=== PATIENT | male | born 1940 | race Caucasian/White ===

== ENCOUNTER 2021-01-18 16:12 | Inpatient (IN) | payer MEDICARE, OTHER ==
[~2021-01-18] VITALS: Ht 177.8 cm; Wt 81.2 kg
[~2021-01-18 16:12] MED LIST: AMIODARONE HCL200 MG PO; AMLODIPINE BESY10 MG PO; ATORVASTATIN CA10 MG PO; DOK100 MG PO; FERROUS SULFAT325 MG PO; HUMALOG100 UNIT/3; HYDRALAZINE HCL10 MG PO; HYDROCODON-ACE1 EA11 PO; LANTUS100 UNITS/ SQ; MULTIPLE VITAM1 EAC1 PO; NORCO 5-325 TA1 EACH PO; OMEGA 3 1,0001 EACH PEG; SENNA LAX8.6 MG PO; VITAMIN D1000 UNI1 PO; ZINC SULFATE220 M1 PO; ZOLOFT100 MG PO; vascepa PO
[2021-01-18] MEDS ORDERED: SODIUM CHLORIDE 0.9% 250ML 250 ML IV ONE (16:45)
[2021-01-18 16:53] LABS: BASOPHILS # (AUTO) 0.1 (0.0-0.1); BASOPHILS % 0.3 % (0.0-1.0); EOSINOPHILS % 0.2 % (0.0-6.0); HEMATOCRIT 30.7 % (38.2-49.6); HEMOGLOBIN 8.8 g/dL (14.0-18.0); LYMPHOCYTES # (AUTO) 0.9 (1.0-3.2); LYMPHOCYTES % 4.7 % (18.0-39.1); MEAN CORPUSCULAR HEMOGLOBIN 28.5 pg (28-32); MEAN CORPUSCULAR HGB CONC 28.7 g/dL (31-35); MEAN CORPUSCULAR VOLUME 99.4 fL (81-99); MONOCYTES # (AUTO) 0.8 (0.2-0.8); PLATELET COUNT 366 x10e3/uL (140-360); RED BLOOD COUNT 3.09 x10e6/uL (4.3-5.7)
[2021-01-18 17:01] LABS: CLARITY,URINE TURBID (CLEAR); COLOR,URINE YELLOW (YELLOW); KETONES,URINE NEGATIVE (NEGATIVE); LEUKOCYTE ESTERASE ,URINE LARGE (NEGATIVE); NITRITE,URINE NEGATIVE (NEGATIVE); PROTEIN,URINE DIPSTICK 2+ (NEGATIVE); URINE UROBILINOGEN 0.2 mg/dL (0.2 - 1)
[2021-01-18 17:10] LABS: BACTERIA,URINE MODERATE /HPF; MUCUS,URINE RARE (RARE); WBC,URINE (MAN) >50 /HPF (0-5)
[2021-01-18 17:12] LABS: ALBUMIN 2.2 g/dL (3.5-5.0); ALBUMIN/GLOBULIN RATIO 0.4 (0.8-2.0); ANION GAP 25.5 mmol/L (8-16); CALCIUM 7.3 mg/dL (8.4-10.2); CREATININE, SERUM 7.28 mg/dL (0.72-1.25); MAGNESIUM 2.1 MG/DL (1.3-2.1)
[2021-01-18 17:14] LABS: POTASSIUM 5.5 mmol/L (3.5-5.1)
[2021-01-18 17:18] LABS: CREATINE KINASE MB 1.8 ng/mL (0-5.0)
[2021-01-18] MEDS ORDERED: CEFEPIME 1 GM in SODIUM CHLORIDE 0.9% 50ML 50 ML IV ONE (17:30)
[2021-01-18] MEDS ORDERED: DEXTROSE 50% SYRINGE 50 ML IV STA (17:53)
[2021-01-18] MEDS ORDERED: FUROSEMIDE INJ 10 MG/ML 4 ML VIAL IV ONE (18:00)
[2021-01-18] MEDS ORDERED: SOD POLYSTYRENE SULFONATE SUSP 15 GM/60 ML BTL PO ONE (18:00)
[2021-01-18] MEDS ORDERED: INSULIN REGULAR, HUMAN 100 UNIT/1 ML IV ONE (18:15)
[2021-01-18] MEDS ORDERED: SODIUM CHLORIDE 0.9% 1000ML 1,000 ML ONE (18:24)
[2021-01-18] MEDS: SODIUM CHLORIDE 0.9% 1000ML 1,000 ML IV SCH (18:30)
[2021-01-18] MEDS ORDERED: ASPIRIN 81 MG CHEW TAB PO ONE ×2 (18:30→18:45)
[2021-01-18] MEDS ORDERED: SODIUM BICARBONATE 8.4% INJ 50 ML SYR IV STA ×4 (19:14→19:16)
[2021-01-18] MEDS ORDERED: CALCIUM GLUCONATE 10% INJ 4.65 MEQ in SODIUM CHLORIDE 0.9% 50ML 50 ML IV ONE (19:30)
[2021-01-18] MEDS ORDERED: DEXTROSE 5% 1,000 ML IV ONE (19:30)
[2021-01-18] MEDS ORDERED: SODIUM BICARBONATE 8.4% SYRING 50 ML ONE (21:06)
[2021-01-18] MEDS ORDERED: ONDANSETRON HCL INJ 2MG/ML 2ML 2 MG/ML VIAL ONE (21:12)
[2021-01-18] MEDS ORDERED: LIDOCAINE HCL 1% LOCAL INJ 20 ML VIAL ONE (21:23)
[2021-01-18 22:47] VITALS: BP 107/75
[2021-01-18] MEDS ORDERED: SENNOSIDES 8.6 MG TAB PO PRN (23:00)
[2021-01-18] MEDS ORDERED: DEXTROSE 50% SYRINGE 50 ML IV PRN (23:00)
[2021-01-18] MEDS ORDERED: SODIUM CHLORIDE 0.9% 1000ML 2,000 ML ONE (23:53)
[2021-01-19] VITALS (9 sets, daily range): BP systolic 103–132; BP diastolic 49–59
[2021-01-19] MEDS ORDERED: MANNITOL 25% 12.5GM/50ML 100 ML ONE (00:37)
[2021-01-19] MEDS ORDERED: HEPARIN SOD (PORCINE) 1000 UNIT/ML SDV IV PRN (01:00)
[2021-01-19] MEDS ORDERED: MANNITOL 25% 12.5GM/50 ML VIAL IV PRN (01:00)
[2021-01-19] MEDS ORDERED: SODIUM CHLORIDE 0.9% 1000ML 2,000 ML IV PRN (01:00)
[2021-01-19] MEDS: SODIUM CHLORIDE 0.9% 1000ML 1,000 ML IV SCH ×3 (02:30→21:40)
[2021-01-19 05:15] LABS: ABG HCO3 28 mmol/L (22-26); ABG PCO2 36 mmHg (35-45); ABG PO2 61 mmHg (80-105); ABG TCO2 29
[2021-01-19 06:05] LABS: BASOPHILS % 0.3 % (0.0-1.0); EOSINOPHILS # (AUTO) 0.1 (0.0-0.4); EOSINOPHILS % 0.8 % (0.0-6.0); HEMATOCRIT 24.6 % (38.2-49.6); HEMOGLOBIN 7.4 g/dL (14.0-18.0); LYMPHOCYTES # (AUTO) 1.1 (1.0-3.2); LYMPHOCYTES % 8.5 % (18.0-39.1); MEAN CORPUSCULAR HEMOGLOBIN 28.9 pg (28-32); MEAN CORPUSCULAR HGB CONC 30.1 g/dL (31-35); MEAN CORPUSCULAR VOLUME 96.1 fL (81-99); MONOCYTES # (AUTO) 0.7 (0.2-0.8); MONOCYTES % 5.2 % (4.4-11.3); NEUTROPHILS # (AUTO) 11.2 (2.1-6.9); NEUTROPHILS % 84.6 % (38.7-80.0); PLATELET COUNT 318 x10e3/uL (140-360); RED BLOOD COUNT 2.56 x10e6/uL (4.3-5.7); RED CELL DISTRIBUTION WIDTH 18.8 % (11.7-14.4)
[2021-01-19 06:22] LABS: ALBUMIN 1.8 g/dL (3.5-5.0); ALBUMIN/GLOBULIN RATIO 0.4 (0.8-2.0); ANION GAP 18.2 mmol/L (8-16); CREATININE, SERUM 4.52 mg/dL (0.72-1.25); POTASSIUM 3.2 mmol/L (3.5-5.1)
[2021-01-19 06:23] LABS: INR 1.18; PROTHROMBIN TIME 15.7 seconds (11.9-14.5)
[2021-01-19 06:24] LABS: PARTIAL THROMBOPLASTIN TIME 40.5 seconds (23.8-35.5)
[2021-01-19 07:01] LABS: THYROID STIMULATING HORMONE 4.798 uIU/mL (0.350-4.940)
[2021-01-19] MEDS: INSULIN LISPRO 100 UNIT/1 ML 3ML VIAL SQ SCH ×4 (07:39→21:00)
[2021-01-19] MEDS ORDERED: VANCOMYCIN 1GM/NS 250 ML 250 ML IV ONE (08:30)
[2021-01-19] MEDS ORDERED: DEXTROSE 50% SYRINGE 50 ML IV PRN (08:30)
[2021-01-19] MEDS ORDERED: HYDRALAZINE HCL 20 MG/ML VIAL IV PRN (08:30)
[2021-01-19] MEDS ORDERED: CEFEPIME 1 GM in SODIUM CHLORIDE 0.9% 50ML 50 ML IV SCH (09:00)
[2021-01-19] MEDS ORDERED: Vancomycin IV 1 GM in SODIUM CHLORIDE 0.9% 250ML 250 ML IV ONE (09:15)
[2021-01-19] MEDS ORDERED: SODIUM CHLORIDE 0.9% 250ML 250 ML IV ONE (09:15)
[2021-01-19] MEDS: FAMOTIDINE 20 MG TAB PO SCH (09:36)
[2021-01-19] MEDS: SERTRALINE HCL 100 MG TAB PO SCH (09:36)
[2021-01-19] MEDS: ZINC SULFATE 220 MG CAP PO SCH ×3 (09:36→21:10)
[2021-01-19] MEDS: SENNOSIDES 8.6 MG TAB PO SCH (09:36)
[2021-01-19] MEDS: DOCUSATE SODIUM 100 MG CAP PO SCH ×2 (09:36→17:15)
[2021-01-19] MEDS: FERROUS SULFATE 325 MG TAB PO SCH ×2 (09:36→17:15)
[2021-01-19] MEDS: AMIODARONE HCL 200 MG TAB PO SCH (09:36)
[2021-01-19] MEDS ORDERED: INSULIN LISPRO 100 UNIT/1 ML 3ML VIAL SQ SCH (11:30)
[2021-01-19] MEDS: CEFEPIME 1 GM in SODIUM CHLORIDE 0.9% 50ML 50 ML IV SCH (11:53)
[2021-01-19] MEDS ORDERED: SODIUM CHLORIDE 0.9% 250ML 250 ML ONE (15:43)
[2021-01-19] MEDS ORDERED: CEFEPIME 0.5 GM in SODIUM CHLORIDE 0.9% 50ML 50 ML IV SCH (17:00)
[2021-01-19] MEDS: ONDANSETRON HCL INJ 2MG/ML 2ML 2 MG/ML VIAL IV PRN (19:48)
[2021-01-19] MEDS ORDERED: ATORVASTATIN 10 MG TAB PO SCH (21:00)
[2021-01-19] MEDS: INSULIN GLARGINE 100 UNITS/ML VIAL SQ SCH (21:00)
[2021-01-20] MEDS: SODIUM CHLORIDE 0.9% 1000ML 1,000 ML IV SCH ×3 (00:24→17:49)
[2021-01-20 05:33] LABS: BASOPHILS % 0.4 % (0.0-1.0); EOSINOPHILS # (AUTO) 0.2 (0.0-0.4); EOSINOPHILS % 1.7 % (0.0-6.0); HEMATOCRIT 27.9 % (38.2-49.6); HEMOGLOBIN 8.3 g/dL (14.0-18.0); LYMPHOCYTES # (AUTO) 1.1 (1.0-3.2); LYMPHOCYTES % 12.3 % (18.0-39.1); MEAN CORPUSCULAR HEMOGLOBIN 29.1 pg (28-32); MEAN CORPUSCULAR HGB CONC 29.7 g/dL (31-35); MEAN CORPUSCULAR VOLUME 97.9 fL (81-99); MONOCYTES # (AUTO) 0.8 (0.2-0.8); MONOCYTES % 8.4 % (4.4-11.3); NEUTROPHILS % 76.5 % (38.7-80.0); PLATELET COUNT 262 x10e3/uL (140-360); RED BLOOD COUNT 2.85 x10e6/uL (4.3-5.7); RED CELL DISTRIBUTION WIDTH 19.4 % (11.7-14.4)
[2021-01-20 05:45] LABS: ANION GAP 13.9 mmol/L (8-16); CREATININE, SERUM 2.54 mg/dL (0.72-1.25)
[2021-01-20] MEDS: LEVOTHYROXINE SODIUM 125 MCG TAB PO SCH (06:00)
[2021-01-20 06:13] LABS: CALCIUM 6.9 mg/dL (8.4-10.2); POTASSIUM 2.9 mmol/L (3.5-5.1)
[2021-01-20] MEDS: CEFEPIME 1 GM in SODIUM CHLORIDE 0.9% 50ML 50 ML IV SCH (06:48)
[2021-01-20] MEDS: INSULIN LISPRO 100 UNIT/1 ML 3ML VIAL SQ SCH ×4 (07:30→21:00)
[2021-01-20] MEDS: ZINC SULFATE 220 MG CAP PO SCH ×3 (09:00→21:53)
[2021-01-20] MEDS: FERROUS SULFATE 325 MG TAB PO SCH ×2 (09:00→17:46)
[2021-01-20] MEDS: DOCUSATE SODIUM 100 MG CAP PO SCH ×2 (09:00→17:46)
[2021-01-20] MEDS ORDERED: POTASSIUM CHLORIDE 20MEQ/100ML 100 ML IV ONE (09:15)
[2021-01-20] MEDS ORDERED: POTASSIUM CHLORIDE 20MEQ/100ML 200 ML IV ONE ×2 (09:30→14:00)
[2021-01-20] MEDS ORDERED: BUPIVACAINE 0.25% 30ML SDV ONE (09:32)
[2021-01-20] MEDS ORDERED: FENTANYL CITRATE/PF 100MCG/2 ML INJ ONE (11:27)
[2021-01-20] MEDS ORDERED: PROPOFOL IV EMULSION 10 MG/ML 20 ML VIAL ONE (12:28)
[2021-01-20] MEDS ORDERED: PHENYLEPHRINE HCL 1% 10 MG/ML VIAL ONE (12:28)
[2021-01-20] MEDS ORDERED: LIDOCAINE HCL 2% LOCAL INJ 5 ML SDV VIAL INJ ONE (12:28)
[2021-01-20] MEDS ORDERED: SEVOFLURANE INHAL SOLN 250 ML PEN BTL ONE (12:28)
[2021-01-20] MEDS ORDERED: ROCURONIUM BROMIDE 10 MG/ML 5ML VIAL IV ONE (12:28)
[2021-01-20] MEDS ORDERED: ONDANSETRON HCL INJ 2MG/ML 2ML 2 MG/ML VIAL ONE (12:28)
[2021-01-20] MEDS ORDERED: POVIDONE IODINE 0.05% 0.05 % ML PO ONE (12:28)
[2021-01-20] MEDS: SERTRALINE HCL 100 MG TAB PO SCH (15:33)
[2021-01-20] MEDS: AMIODARONE HCL 200 MG TAB PO SCH (15:33)
[2021-01-20] MEDS: FAMOTIDINE 20 MG TAB PO SCH (15:33)
[2021-01-20] MEDS: SENNOSIDES 8.6 MG TAB PO SCH (15:37)
[2021-01-20] MEDS: INSULIN GLARGINE 100 UNITS/ML VIAL SQ SCH (22:56)
[2021-01-21] MEDS: CEFEPIME 1 GM in SODIUM CHLORIDE 0.9% 50ML 50 ML IV SCH (05:36)
[2021-01-21] MEDS: LEVOTHYROXINE SODIUM 125 MCG TAB PO SCH (05:36)
[2021-01-21 06:32] LABS: CALCIUM 7.1 mg/dL (8.4-10.2)
[2021-01-21 07:06] LABS: MAGNESIUM 1.5 MG/DL (1.3-2.1); PHOSPHORUS 3.8 MG/DL (2.3-4.7)
[2021-01-21] MEDS: INSULIN LISPRO 100 UNIT/1 ML 3ML VIAL SQ SCH ×2 (07:30→11:30)
[2021-01-21] MEDS: SERTRALINE HCL 100 MG TAB PO SCH (08:11)
[2021-01-21] MEDS: DOCUSATE SODIUM 100 MG CAP PO SCH (08:11)
[2021-01-21] MEDS: FAMOTIDINE 20 MG TAB PO SCH (08:11)
[2021-01-21] MEDS: AMIODARONE HCL 200 MG TAB PO SCH (08:11)
[2021-01-21] MEDS: ZINC SULFATE 220 MG CAP PO SCH ×2 (08:11→21:00)
[2021-01-21] MEDS: FERROUS SULFATE 325 MG TAB PO SCH (08:11)
[2021-01-21] MEDS: SENNOSIDES 8.6 MG TAB PO SCH (08:11)
[2021-01-22] MEDS: LEVOTHYROXINE SODIUM 125 MCG TAB PO SCH (06:00)
[2021-01-22] MEDS: CEFEPIME 1 GM in SODIUM CHLORIDE 0.9% 50ML 50 ML IV SCH (06:00)
[2021-01-22] MEDS: INSULIN LISPRO 100 UNIT/1 ML 3ML VIAL SQ SCH ×4 (07:30→20:25)
[2021-01-22 08:00] VITALS: BP 118/59
[2021-01-22] MEDS: SERTRALINE HCL 100 MG TAB PO SCH (09:00)
[2021-01-22] MEDS: ZINC SULFATE 220 MG CAP PO SCH ×3 (09:00→20:25)
[2021-01-22] MEDS: DOCUSATE SODIUM 100 MG CAP PO SCH ×2 (09:00→16:37)
[2021-01-22] MEDS: FAMOTIDINE 20 MG TAB PO SCH (09:00)
[2021-01-22] MEDS: AMIODARONE HCL 200 MG TAB PO SCH (09:00)
[2021-01-22] MEDS: SENNOSIDES 8.6 MG TAB PO SCH (09:00)
[2021-01-22] MEDS: FERROUS SULFATE 325 MG TAB PO SCH ×2 (09:00→16:37)
[2021-01-22 12:00] VITALS: BP 134/75
[2021-01-22 15:52] VITALS: BP 137/71
[2021-01-22 17:19] LABS: ANION GAP 15.2 mmol/L (8-16); CREATININE, SERUM 3.12 mg/dL (0.72-1.25); POTASSIUM 4.2 mmol/L (3.5-5.1)
[2021-01-22 17:20] LABS: ALBUMIN 1.6 g/dL (3.5-5.0); ALBUMIN/GLOBULIN RATIO 0.4 (0.8-2.0); HEMATOCRIT 31.9 % (38.2-49.6); HEMOGLOBIN 9.2 g/dL (14.0-18.0); MAGNESIUM 1.5 MG/DL (1.3-2.1); PHOSPHORUS 7.2 MG/DL (2.3-4.7); RED BLOOD COUNT 3.14 x10e6/uL (4.3-5.7)
[2021-01-22 17:21] LABS: BASOPHILS # (AUTO) 0.1 (0.0-0.1); BASOPHILS % 0.7 % (0.0-1.0); EOSINOPHILS # (AUTO) 0.4 (0.0-0.4); LYMPHOCYTES # (AUTO) 1.6 (1.0-3.2); LYMPHOCYTES % 20.3 % (18.0-39.1); MEAN CORPUSCULAR HEMOGLOBIN 29.3 pg (28-32); MEAN CORPUSCULAR HGB CONC 28.8 g/dL (31-35); MEAN CORPUSCULAR VOLUME 101.6 fL (81-99); MONOCYTES # (AUTO) 0.8 (0.2-0.8); MONOCYTES % 9.7 % (4.4-11.3); NEUTROPHILS # (AUTO) 5.1 (2.1-6.9); NEUTROPHILS % 63.7 % (38.7-80.0); PLATELET COUNT 175 x10e3/uL (140-360); RED CELL DISTRIBUTION WIDTH 18.7 % (11.7-14.4)
[2021-01-22] MEDS: ACETAMINOPHEN/CODEINE 300MG - 30MG TAB PO PRN (18:29)
[2021-01-22 19:30] VITALS: BP 136/65
[2021-01-22] MEDS: TAMSULOSIN HCL 0.4 MG CAP PO SCH (20:25)
[2021-01-22] MEDS: INSULIN GLARGINE 100 UNITS/ML VIAL SQ SCH ×2 (20:25→23:56)
[2021-01-22] MEDS: HYDROCODONE/APAP 5MG-325MG TAB PO PRN (20:25)
[2021-01-22 23:55] VITALS: BP 136/65
[2021-01-23] VITALS (9 sets, daily range): BP systolic 107–135; BP diastolic 59–87
[2021-01-23] MEDS: HYDROCODONE/APAP 5MG-325MG TAB PO PRN (03:00)
[2021-01-23] MEDS: ACETAMINOPHEN/CODEINE 300MG - 30MG TAB PO PRN (05:33)
[2021-01-23] MEDS: LEVOTHYROXINE SODIUM 125 MCG TAB PO SCH (05:33)
[2021-01-23] MEDS: CEFEPIME 1 GM in SODIUM CHLORIDE 0.9% 50ML 50 ML IV SCH (05:33)
[2021-01-23] MEDS ORDERED: SODIUM CHLORIDE 0.9% 250ML 250 ML ONE (05:45)
[2021-01-23 06:13] LABS: BASOPHILS # (AUTO) 0.1 (0.0-0.1); BASOPHILS % 0.9 % (0.0-1.0); EOSINOPHILS # (AUTO) 0.4 (0.0-0.4); EOSINOPHILS % 5.1 % (0.0-6.0); HEMATOCRIT 30.9 % (38.2-49.6); HEMOGLOBIN 8.8 g/dL (14.0-18.0); LYMPHOCYTES # (AUTO) 1.8 (1.0-3.2); MEAN CORPUSCULAR HEMOGLOBIN 28.2 pg (28-32); MEAN CORPUSCULAR HGB CONC 28.5 g/dL (31-35); MONOCYTES # (AUTO) 0.8 (0.2-0.8); MONOCYTES % 9.8 % (4.4-11.3); NEUTROPHILS # (AUTO) 4.8 (2.1-6.9); NEUTROPHILS % 60.4 % (38.7-80.0); PLATELET COUNT 211 x10e3/uL (140-360); RED BLOOD COUNT 3.12 x10e6/uL (4.3-5.7); RED CELL DISTRIBUTION WIDTH 18.1 % (11.7-14.4)
[2021-01-23 06:39] LABS: ALBUMIN 1.5 g/dL (3.5-5.0); ALBUMIN/GLOBULIN RATIO 0.4 (0.8-2.0); ANION GAP 11.9 mmol/L (8-16); CREATININE, SERUM 3.05 mg/dL (0.72-1.25); POTASSIUM 3.9 mmol/L (3.5-5.1)
[2021-01-23 06:43] LABS: CALCIUM 6.9 mg/dL (8.4-10.2)
[2021-01-23] MEDS: INSULIN LISPRO 100 UNIT/1 ML 3ML VIAL SQ SCH ×4 (07:30→21:00)
[2021-01-23] MEDS: ZINC SULFATE 220 MG CAP PO SCH ×3 (09:24→15:08)
[2021-01-23] MEDS: SERTRALINE HCL 100 MG TAB PO SCH (09:24)
[2021-01-23] MEDS: DOCUSATE SODIUM 100 MG CAP PO SCH ×2 (09:24→17:12)
[2021-01-23] MEDS: FERROUS SULFATE 325 MG TAB PO SCH ×2 (09:24→17:12)
[2021-01-23] MEDS: FAMOTIDINE 20 MG TAB PO SCH (09:24)
[2021-01-23] MEDS: SENNOSIDES 8.6 MG TAB PO SCH (09:24)
[2021-01-23] MEDS: AMIODARONE HCL 200 MG TAB PO SCH (09:24)
[2021-01-23] MEDS: ONDANSETRON HCL INJ 2MG/ML 2ML 2 MG/ML VIAL IV PRN (11:12)
[2021-01-23 12:24] LABS: CREATININE,URINE RANDOM 46.48 mg/dL (63-166)
[2021-01-23] MEDS: INSULIN GLARGINE 100 UNITS/ML VIAL SQ SCH (21:00)
[2021-01-23] MEDS: TAMSULOSIN HCL 0.4 MG CAP PO SCH (21:00)
[2021-01-24] VITALS (8 sets, daily range): BP systolic 99–125; BP diastolic 58–82
[2021-01-24] MEDS: CEFEPIME 1 GM in SODIUM CHLORIDE 0.9% 50ML 50 ML IV SCH (05:13)
[2021-01-24] MEDS: LEVOTHYROXINE SODIUM 125 MCG TAB PO SCH (05:13)
[2021-01-24 06:31] LABS: ALBUMIN 1.6 g/dL (3.5-5.0); ALBUMIN/GLOBULIN RATIO 0.4 (0.8-2.0); ANION GAP 12.5 mmol/L (8-16); CALCIUM 7.3 mg/dL (8.4-10.2); CREATININE, SERUM 3.17 mg/dL (0.72-1.25); POTASSIUM 4.5 mmol/L (3.5-5.1)
[2021-01-24] MEDS: INSULIN LISPRO 100 UNIT/1 ML 3ML VIAL SQ SCH ×4 (07:30→21:00)
[2021-01-24] MEDS: FAMOTIDINE 20 MG TAB PO SCH (08:24)
[2021-01-24] MEDS: FERROUS SULFATE 325 MG TAB PO SCH ×2 (08:24→17:10)
[2021-01-24] MEDS: SENNOSIDES 8.6 MG TAB PO SCH (08:24)
[2021-01-24] MEDS: AMIODARONE HCL 200 MG TAB PO SCH (08:24)
[2021-01-24] MEDS: SERTRALINE HCL 100 MG TAB PO SCH (08:24)
[2021-01-24] MEDS: DOCUSATE SODIUM 100 MG CAP PO SCH ×2 (08:24→17:10)
[2021-01-24] MEDS: NYSTATIN 100,000 UNITS/GM CRM 30GM TUBE TOP SCH ×2 (09:15→17:10)
[2021-01-24] MEDS: SODIUM BICARBONATE 650 MG TAB PO SCH (17:10)
[2021-01-24] MEDS: TAMSULOSIN HCL 0.4 MG CAP PO SCH (21:00)
[2021-01-24] MEDS ORDERED: TAMSULOSIN HCL 0.4 MG CAP PO SCH (21:00)
[2021-01-24] MEDS: ZINC SULFATE 220 MG CAP PO SCH (21:00)
[2021-01-24] MEDS: INSULIN GLARGINE 100 UNITS/ML VIAL SQ SCH (21:00)
[2021-01-25] VITALS (8 sets, daily range): BP systolic 93–132; BP diastolic 52–76
[2021-01-25] MEDS: CEFEPIME 1 GM in SODIUM CHLORIDE 0.9% 50ML 50 ML IV SCH (05:45)
[2021-01-25] MEDS: LEVOTHYROXINE SODIUM 125 MCG TAB PO SCH (05:45)
[2021-01-25 07:25] LABS: BASOPHILS # (AUTO) 0.1 (0.0-0.1); EOSINOPHILS # (AUTO) 0.4 (0.0-0.4); EOSINOPHILS % 4.5 % (0.0-6.0); HEMATOCRIT 31.5 % (38.2-49.6); HEMOGLOBIN 9.1 g/dL (14.0-18.0); LYMPHOCYTES # (AUTO) 1.6 (1.0-3.2); MEAN CORPUSCULAR HEMOGLOBIN 28.7 pg (28-32); MEAN CORPUSCULAR HGB CONC 28.9 g/dL (31-35); MEAN CORPUSCULAR VOLUME 99.4 fL (81-99); MONOCYTES # (AUTO) 0.9 (0.2-0.8); NEUTROPHILS % 65.5 % (38.7-80.0); PLATELET COUNT 196 x10e3/uL (140-360); RED BLOOD COUNT 3.17 x10e6/uL (4.3-5.7); RED CELL DISTRIBUTION WIDTH 17.3 % (11.7-14.4)
[2021-01-25] MEDS: INSULIN LISPRO 100 UNIT/1 ML 3ML VIAL SQ SCH ×4 (07:30→21:00)
[2021-01-25 07:56] LABS: ALBUMIN 1.7 g/dL (3.5-5.0); ALBUMIN/GLOBULIN RATIO 0.4 (0.8-2.0); ANION GAP 11.2 mmol/L (8-16); CALCIUM 7.1 mg/dL (8.4-10.2); CREATININE, SERUM 3.09 mg/dL (0.72-1.25); POTASSIUM 4.2 mmol/L (3.5-5.1)
[2021-01-25] MEDS: DOCUSATE SODIUM 100 MG CAP PO SCH ×2 (09:40→16:46)
[2021-01-25] MEDS: SODIUM BICARBONATE 650 MG TAB PO SCH ×2 (09:41→16:46)
[2021-01-25] MEDS: FERROUS SULFATE 325 MG TAB PO SCH ×2 (09:41→16:46)
[2021-01-25] MEDS: AMIODARONE HCL 200 MG TAB PO SCH (09:41)
[2021-01-25] MEDS: FAMOTIDINE 20 MG TAB PO SCH (09:41)
[2021-01-25] MEDS: SENNOSIDES 8.6 MG TAB PO SCH (09:41)
[2021-01-25] MEDS: NYSTATIN 100,000 UNITS/GM CRM 30GM TUBE TOP SCH ×2 (09:42→16:46)
[2021-01-25] MEDS: ZINC SULFATE 220 MG CAP PO SCH ×3 (09:42→21:00)
[2021-01-25] MEDS: SERTRALINE HCL 100 MG TAB PO SCH (09:42)
[2021-01-25] MEDS: INSULIN GLARGINE 100 UNITS/ML VIAL SQ SCH (21:00)
[2021-01-25] MEDS: TAMSULOSIN HCL 0.4 MG CAP PO SCH (21:00)
[2021-01-25 22:59] LABS: CREATININE,URINE RANDOM 46.02 mg/dL (63-166)
[2021-01-26] VITALS (8 sets, daily range): BP systolic 98–138; BP diastolic 60–79
[2021-01-26] MEDS: CEFEPIME 1 GM in SODIUM CHLORIDE 0.9% 50ML 50 ML IV SCH (05:06)
[2021-01-26] MEDS: LEVOTHYROXINE SODIUM 125 MCG TAB PO SCH (05:06)
[2021-01-26] MEDS: INSULIN LISPRO 100 UNIT/1 ML 3ML VIAL SQ SCH ×4 (07:30→21:00)
[2021-01-26] MEDS: FERROUS SULFATE 325 MG TAB PO SCH ×2 (08:05→16:43)
[2021-01-26] MEDS: FAMOTIDINE 20 MG TAB PO SCH (08:05)
[2021-01-26] MEDS: DOCUSATE SODIUM 100 MG CAP PO SCH ×2 (08:05→16:43)
[2021-01-26] MEDS: SENNOSIDES 8.6 MG TAB PO SCH (08:05)
[2021-01-26] MEDS: AMIODARONE HCL 200 MG TAB PO SCH (08:05)
[2021-01-26] MEDS: SODIUM BICARBONATE 650 MG TAB PO SCH ×2 (08:06→16:43)
[2021-01-26] MEDS: SERTRALINE HCL 100 MG TAB PO SCH (08:06)
[2021-01-26] MEDS: ZINC SULFATE 220 MG CAP PO SCH ×3 (08:06→21:36)
[2021-01-26 08:07] LABS: ALBUMIN 1.7 g/dL (3.5-5.0); ALBUMIN/GLOBULIN RATIO 0.4 (0.8-2.0); ANION GAP 15.1 mmol/L (8-16); CALCIUM 7.1 mg/dL (8.4-10.2); CREATININE, SERUM 2.93 mg/dL (0.72-1.25); POTASSIUM 4.1 mmol/L (3.5-5.1)
[2021-01-26] MEDS: ONDANSETRON HCL INJ 2MG/ML 2ML 2 MG/ML VIAL IV PRN (08:08)
[2021-01-26] MEDS: NYSTATIN 100,000 UNITS/GM CRM 30GM TUBE TOP SCH ×2 (09:00→16:43)
[2021-01-26] MEDS: INSULIN GLARGINE 100 UNITS/ML VIAL SQ SCH (21:00)
[2021-01-26] MEDS: TAMSULOSIN HCL 0.4 MG CAP PO SCH (21:36)
[2021-01-27] VITALS (7 sets, daily range): BP systolic 115–132; BP diastolic 57–73
[2021-01-27] MEDS: LEVOTHYROXINE SODIUM 125 MCG TAB PO SCH (05:52)
[2021-01-27] MEDS: CEFEPIME 1 GM in SODIUM CHLORIDE 0.9% 50ML 50 ML IV SCH (05:52)
[2021-01-27 07:07] LABS: ALBUMIN 1.6 g/dL (3.5-5.0); ALBUMIN/GLOBULIN RATIO 0.4 (0.8-2.0); ANION GAP 12.8 mmol/L (8-16); CALCIUM 7.1 mg/dL (8.4-10.2); CREATININE, SERUM 3.01 mg/dL (0.72-1.25); POTASSIUM 3.8 mmol/L (3.5-5.1)
[2021-01-27] MEDS: INSULIN LISPRO 100 UNIT/1 ML 3ML VIAL SQ SCH ×4 (07:30→21:00)
[2021-01-27] MEDS: SENNOSIDES 8.6 MG TAB PO SCH (08:45)
[2021-01-27] MEDS: AMIODARONE HCL 200 MG TAB PO SCH (08:45)
[2021-01-27] MEDS: ZINC SULFATE 220 MG CAP PO SCH ×3 (08:45→21:21)
[2021-01-27] MEDS: FAMOTIDINE 20 MG TAB PO SCH (08:45)
[2021-01-27] MEDS: FERROUS SULFATE 325 MG TAB PO SCH ×2 (08:45→15:57)
[2021-01-27] MEDS: NYSTATIN 100,000 UNITS/GM CRM 30GM TUBE TOP SCH ×2 (08:45→15:57)
[2021-01-27] MEDS: DOCUSATE SODIUM 100 MG CAP PO SCH ×2 (08:45→15:57)
[2021-01-27] MEDS: SERTRALINE HCL 100 MG TAB PO SCH (08:45)
[2021-01-27] MEDS: SODIUM BICARBONATE 650 MG TAB PO SCH ×2 (08:45→15:57)
[2021-01-27] MEDS ORDERED: FLUCONAZOLE 100 MG TAB PO ONE (10:30)
[2021-01-27] MEDS: ONDANSETRON HCL INJ 2MG/ML 2ML 2 MG/ML VIAL IV PRN (17:06)
[2021-01-27] MEDS: INSULIN GLARGINE 100 UNITS/ML VIAL SQ SCH (21:00)
[2021-01-27] MEDS: TAMSULOSIN HCL 0.4 MG CAP PO SCH (21:21)
[2021-01-28] VITALS (7 sets, daily range): BP systolic 115–142; BP diastolic 54–80
[2021-01-28] MEDS: CEFEPIME 1 GM in SODIUM CHLORIDE 0.9% 50ML 50 ML IV SCH (05:02)
[2021-01-28] MEDS: LEVOTHYROXINE SODIUM 125 MCG TAB PO SCH (05:02)
[2021-01-28] MEDS: INSULIN LISPRO 100 UNIT/1 ML 3ML VIAL SQ SCH ×4 (07:30→21:00)
[2021-01-28] MEDS: SENNOSIDES 8.6 MG TAB PO SCH (08:57)
[2021-01-28] MEDS: AMIODARONE HCL 200 MG TAB PO SCH (08:57)
[2021-01-28] MEDS: DOCUSATE SODIUM 100 MG CAP PO SCH ×2 (08:57→16:09)
[2021-01-28] MEDS: ZINC SULFATE 220 MG CAP PO SCH ×3 (08:58→21:00)
[2021-01-28] MEDS: SODIUM BICARBONATE 650 MG TAB PO SCH ×2 (08:58→16:09)
[2021-01-28] MEDS: FAMOTIDINE 20 MG TAB PO SCH (08:58)
[2021-01-28] MEDS: FERROUS SULFATE 325 MG TAB PO SCH ×2 (08:58→16:09)
[2021-01-28] MEDS: SERTRALINE HCL 100 MG TAB PO SCH (08:58)
[2021-01-28] MEDS ORDERED: FLUCONAZOLE 100 MG TAB PO SCH (09:00)
[2021-01-28] MEDS: NYSTATIN 100,000 UNITS/GM CRM 30GM TUBE TOP SCH ×2 (09:03→16:09)
[2021-01-28] MEDS: ONDANSETRON HCL INJ 2MG/ML 2ML 2 MG/ML VIAL IV PRN (17:49)
[2021-01-28] MEDS: INSULIN GLARGINE 100 UNITS/ML VIAL SQ SCH (21:00)
[2021-01-28] MEDS: TAMSULOSIN HCL 0.4 MG CAP PO SCH (21:00)
[2021-01-29] VITALS (8 sets, daily range): BP systolic 102–149; BP diastolic 55–69
[2021-01-29] MEDS: LEVOTHYROXINE SODIUM 125 MCG TAB PO SCH (05:02)
[2021-01-29] MEDS: CEFEPIME 1 GM in SODIUM CHLORIDE 0.9% 50ML 50 ML IV SCH (05:02)
[2021-01-29 06:22] LABS: BASOPHILS # (AUTO) 0.1 (0.0-0.1); BASOPHILS % 0.7 % (0.0-1.0); EOSINOPHILS # (AUTO) 0.4 (0.0-0.4); EOSINOPHILS % 3.7 % (0.0-6.0); HEMATOCRIT 30.7 % (38.2-49.6); HEMOGLOBIN 8.8 g/dL (14.0-18.0); LYMPHOCYTES # (AUTO) 1.6 (1.0-3.2); LYMPHOCYTES % 14.7 % (18.0-39.1); MEAN CORPUSCULAR HEMOGLOBIN 28.4 pg (28-32); MEAN CORPUSCULAR HGB CONC 28.7 g/dL (31-35); MONOCYTES # (AUTO) 0.9 (0.2-0.8); MONOCYTES % 8.2 % (4.4-11.3); NEUTROPHILS # (AUTO) 7.9 (2.1-6.9); NEUTROPHILS % 72.1 % (38.7-80.0); PLATELET COUNT 236 x10e3/uL (140-360); RED CELL DISTRIBUTION WIDTH 17.2 % (11.7-14.4)
[2021-01-29 06:55] LABS: ANION GAP 11.7 mmol/L (8-16); CALCIUM 7.7 mg/dL (8.4-10.2); CREATININE, SERUM 2.82 mg/dL (0.72-1.25); POTASSIUM 3.7 mmol/L (3.5-5.1)
[2021-01-29] MEDS: INSULIN LISPRO 100 UNIT/1 ML 3ML VIAL SQ SCH ×4 (07:30→21:00)
[2021-01-29] MEDS: FAMOTIDINE 20 MG TAB PO SCH (09:10)
[2021-01-29] MEDS: NYSTATIN 100,000 UNITS/GM CRM 30GM TUBE TOP SCH ×2 (09:10→16:38)
[2021-01-29] MEDS: FLUCONAZOLE 100 MG/NS 50 ML 50 ML IV SCH (09:10)
[2021-01-29] MEDS: SENNOSIDES 8.6 MG TAB PO SCH (09:11)
[2021-01-29] MEDS: FERROUS SULFATE 325 MG TAB PO SCH ×2 (09:12→16:38)
[2021-01-29] MEDS: AMIODARONE HCL 200 MG TAB PO SCH (09:12)
[2021-01-29] MEDS: SERTRALINE HCL 100 MG TAB PO SCH (09:13)
[2021-01-29] MEDS: DOCUSATE SODIUM 100 MG CAP PO SCH ×2 (09:14→16:39)
[2021-01-29] MEDS: SODIUM BICARBONATE 650 MG TAB PO SCH ×2 (09:14→16:38)
[2021-01-29] MEDS: ZINC SULFATE 220 MG CAP PO SCH ×3 (09:15→21:00)
[2021-01-29] MEDS: TAMSULOSIN HCL 0.4 MG CAP PO SCH (21:00)
[2021-01-29] MEDS: INSULIN GLARGINE 100 UNITS/ML VIAL SQ SCH (21:00)
[2021-01-29] MEDS: ONDANSETRON HCL INJ 2MG/ML 2ML 2 MG/ML VIAL IV PRN (21:09)
[2021-01-30] VITALS (7 sets, daily range): BP systolic 114–126; BP diastolic 53–81
[2021-01-30] MEDS: LEVOTHYROXINE SODIUM 125 MCG TAB PO SCH (03:52)
[2021-01-30] MEDS: INSULIN LISPRO 100 UNIT/1 ML 3ML VIAL SQ SCH ×4 (07:30→21:00)
[2021-01-30] MEDS: NYSTATIN 100,000 UNITS/GM CRM 30GM TUBE TOP SCH ×2 (09:00→17:00)
[2021-01-30] MEDS: FERROUS SULFATE 325 MG TAB PO SCH ×2 (09:00→17:17)
[2021-01-30] MEDS: FAMOTIDINE 20 MG TAB PO SCH (09:00)
[2021-01-30] MEDS: DOCUSATE SODIUM 100 MG CAP PO SCH ×2 (09:00→17:17)
[2021-01-30] MEDS: SENNOSIDES 8.6 MG TAB PO SCH (09:00)
[2021-01-30] MEDS: FLUCONAZOLE 100 MG/NS 50 ML 50 ML IV SCH (09:00)
[2021-01-30] MEDS: AMIODARONE HCL 200 MG TAB PO SCH (09:00)
[2021-01-30] MEDS: SODIUM BICARBONATE 650 MG TAB PO SCH ×2 (09:00→17:17)
[2021-01-30] MEDS: SERTRALINE HCL 100 MG TAB PO SCH (09:00)
[2021-01-30] MEDS: ZINC SULFATE 220 MG CAP PO SCH ×3 (09:00→21:00)
[2021-01-30] MEDS ORDERED: IOPAMIDOL 300MG/ML 50ML INFUS..BTL IV ONE (14:19)
[2021-01-30] MEDS ORDERED: DEXAMETHASONE SOD PHOS INJ 4 MG/ML VIAL ONE (14:35)
[2021-01-30] MEDS ORDERED: LIDOCAINE HCL 2% LOCAL INJ 5 ML SDV VIAL INJ ONE (14:35)
[2021-01-30] MEDS ORDERED: POVIDONE IODINE 0.05% 0.05 % ML PO ONE (14:35)
[2021-01-30] MEDS ORDERED: ONDANSETRON HCL INJ 2MG/ML 2ML 2 MG/ML VIAL ONE (14:35)
[2021-01-30] MEDS ORDERED: SEVOFLURANE INHAL SOLN 250 ML PEN BTL ONE (14:35)
[2021-01-30] MEDS ORDERED: PROPOFOL IV EMULSION 10 MG/ML 20 ML VIAL ONE (14:35)
[2021-01-30] MEDS ORDERED: BUPIVACAINE HCL 0.5% INJ 30 ML VIAL INJ ONE (15:09)
[2021-01-30] MEDS: TAMSULOSIN HCL 0.4 MG CAP PO SCH (21:00)
[2021-01-30] MEDS: INSULIN GLARGINE 100 UNITS/ML VIAL SQ SCH (21:00)
[2021-01-31] VITALS (8 sets, daily range): BP systolic 116–150; BP diastolic 49–87
[2021-01-31] MEDS: LEVOTHYROXINE SODIUM 125 MCG TAB PO SCH (06:30)
[2021-01-31] MEDS: INSULIN LISPRO 100 UNIT/1 ML 3ML VIAL SQ SCH ×4 (07:30→21:00)
[2021-01-31] MEDS: FAMOTIDINE 20 MG TAB PO SCH (08:26)
[2021-01-31] MEDS: FLUCONAZOLE 100 MG/NS 50 ML 50 ML IV SCH (08:26)
[2021-01-31] MEDS: SODIUM BICARBONATE 650 MG TAB PO SCH ×2 (08:26→17:27)
[2021-01-31] MEDS: SERTRALINE HCL 100 MG TAB PO SCH (08:27)
[2021-01-31] MEDS: FERROUS SULFATE 325 MG TAB PO SCH ×2 (08:27→17:27)
[2021-01-31] MEDS: DOCUSATE SODIUM 100 MG CAP PO SCH ×2 (08:27→17:27)
[2021-01-31] MEDS: SENNOSIDES 8.6 MG TAB PO SCH (08:28)
[2021-01-31] MEDS: AMIODARONE HCL 200 MG TAB PO SCH (08:28)
[2021-01-31] MEDS: ZINC SULFATE 220 MG CAP PO SCH ×3 (08:28→21:35)
[2021-01-31 11:14] LABS: ALBUMIN 1.7 g/dL (3.5-5.0); ALBUMIN/GLOBULIN RATIO 0.4 (0.8-2.0); ANION GAP 12.1 mmol/L (8-16); CALCIUM 7.7 mg/dL (8.4-10.2); CREATININE, SERUM 2.88 mg/dL (0.72-1.25); POTASSIUM 4.1 mmol/L (3.5-5.1)
[2021-01-31] MEDS: INSULIN GLARGINE 100 UNITS/ML VIAL SQ SCH (21:00)
[2021-01-31] MEDS: TAMSULOSIN HCL 0.4 MG CAP PO SCH (21:35)
[2021-02-01 00:08] VITALS: BP 154/79
[2021-02-01 05:13] VITALS: BP 161/81
[2021-02-01 06:31] LABS: ALBUMIN 1.7 g/dL (3.5-5.0); ALBUMIN/GLOBULIN RATIO 0.4 (0.8-2.0); ANION GAP 13.3 mmol/L (8-16); CALCIUM 7.4 mg/dL (8.4-10.2); CREATININE, SERUM 2.88 mg/dL (0.72-1.25); POTASSIUM 4.3 mmol/L (3.5-5.1)
[2021-02-01] MEDS: LEVOTHYROXINE SODIUM 125 MCG TAB PO SCH (06:45)
[2021-02-01] MEDS: INSULIN LISPRO 100 UNIT/1 ML 3ML VIAL SQ SCH (07:30)
[2021-02-01] MEDS: AMIODARONE HCL 200 MG TAB PO SCH ×2 (09:00→11:33)
[2021-02-01] MEDS: SENNOSIDES 8.6 MG TAB PO SCH (09:00)
[2021-02-01] MEDS: DOCUSATE SODIUM 100 MG CAP PO SCH (09:00)
[2021-02-01] MEDS: SODIUM BICARBONATE 650 MG TAB PO SCH (09:00)
[2021-02-01] MEDS: ZINC SULFATE 220 MG CAP PO SCH (09:00)
[2021-02-01] MEDS: FERROUS SULFATE 325 MG TAB PO SCH (09:00)
[2021-02-01] MEDS: FAMOTIDINE 20 MG TAB PO SCH (09:00)
[2021-02-01] MEDS: FLUCONAZOLE 100 MG/NS 50 ML 50 ML IV SCH (09:00)
[2021-02-01] MEDS: SERTRALINE HCL 100 MG TAB PO SCH (09:00)
[2021-02-01] MEDS: ONDANSETRON HCL 4 MG ORAL DISINTEGRATING TAB PO PRN ×2 (11:26→11:33)
== END 2021-02-01 12:26 | DRG 853 ==
LOC: ER 16:30 → ERHOLD 18:51 → IMCU 22:05 → ICU 01-19 21:55 → MED/SURG3 01-22 06:00
PROVIDERS: ADMIT Internal Medicine; ATTEND Internal Medicine
PROC: 02H633Z Insertion of Infusion Device into Right Atrium, Percutaneous Approach (ICD-10-PCS; principal; 2021-01-18)
PROC: B548ZZA Ultrasonography of Superior Vena Cava, Guidance (ICD-10-PCS; 2021-01-18)
PROC: 5A1D70Z Performance of Urinary Filtration, Intermittent, Less than 6 Hours Per Day (ICD-10-PCS; 2021-01-19)
PROC: 30243N1 Transfusion of Nonautologous Red Blood Cells into Central Vein, Percutaneous Approach (ICD-10-PCS; 2021-01-19)
PROC: 0VTC0ZZ Resection of Bilateral Testes, Open Approach (ICD-10-PCS; 2021-01-20)
DX: A41.9 Sepsis, unspecified organism (principal); R65.21 Severe sepsis with septic shock; N18.6 End stage renal disease; G92 Toxic encephalopathy; J18.9 Pneumonia, unspecified organism; N39.0 Urinary tract infection, site not specified; T83.518A Infection and inflammatory reaction due to other urinary catheter, initial encounter; I12.0 Hypertensive chronic kidney disease with stage 5 chronic kidney disease or end stage renal disease; N17.9 Acute kidney failure, unspecified; D68.9 Coagulation defect, unspecified; E11.22 Type 2 diabetes mellitus with diabetic chronic kidney disease; Z99.2 Dependence on renal dialysis; E87.5 Hyperkalemia; D47.3 Essential (hemorrhagic) thrombocythemia; D64.9 Anemia, unspecified; E83.51 Hypocalcemia; E88.09 Other disorders of plasma-protein metabolism, not elsewhere classified; E11.9 Type 2 diabetes mellitus without complications; I25.10 Atherosclerotic heart disease of native coronary artery without angina pectoris; F41.9 Anxiety disorder, unspecified; F32.9 Major depressive disorder, single episode, unspecified; E78.5 Hyperlipidemia, unspecified; N40.0 Benign prostatic hyperplasia without lower urinary tract symptoms; K59.09 Other constipation; Z86.73 Personal history of transient ischemic attack (TIA), and cerebral infarction without residual deficits; N49.2 Inflammatory disorders of scrotum; L89.620 Pressure ulcer of left heel, unstageable; L89.610 Pressure ulcer of right heel, unstageable; F03.90 Unspecified dementia, unspecified severity, without behavioral disturbance, psychotic disturbance, mood disturbance, and anxiety; N40.1 Benign prostatic hyperplasia with lower urinary tract symptoms; R33.8 Other retention of urine; I44.0 Atrioventricular block, first degree; Z20.822 Contact with and (suspected) exposure to COVID-19
CPT/HCPCS: 36415; 36556; 36600; 71045; 74176; 74470; 76870; 80048; 80053; 81001; 82040; 82550; 82553; 82575; 82607; 82746; 82805; 82948; 83036; 83540; 83605; 83735; 83880; 84100; 84132; 84443; 84466; 84484; 85025; 85610; 85730; 86704; 86706; 86850; 86900; 86920; 87040; 87071; 87075; 87086; 87205; 87340; 88305; 93005; 93976; 96367; 99251; 99284; C1752; J0610; J0692; J1100; J1450; J1644; J1815; J2001; J2150; J2370; J2405; J3010; J3370; J3480; J7030; J7050; J7070; J7799; P9016; Q0162; U0002

== ENCOUNTER 2021-02-03 14:54 | Inpatient (IN) | payer MEDICARE ==
[~2021-02-03] VITALS: Ht 188 cm; Wt 79.0 kg
[2021-02-03 16:32] LABS: BASOPHILS # (AUTO) 0.1 (0.0-0.1); BASOPHILS % 0.7 % (0.0-1.0); EOSINOPHILS # (AUTO) 0.3 (0.0-0.4); EOSINOPHILS % 2.2 % (0.0-6.0); HEMATOCRIT 35.4 % (38.2-49.6); HEMOGLOBIN 10.1 g/dL (14.0-18.0); LYMPHOCYTES # (AUTO) 2.1 (1.0-3.2); LYMPHOCYTES % 14.3 % (18.0-39.1); MEAN CORPUSCULAR HEMOGLOBIN 28.5 pg (28-32); MEAN CORPUSCULAR HGB CONC 28.5 g/dL (31-35); MEAN CORPUSCULAR VOLUME 99.7 fL (81-99); NEUTROPHILS # (AUTO) 11.2 (2.1-6.9); NEUTROPHILS % 75.1 % (38.7-80.0); PLATELET COUNT 226 x10e3/uL (140-360); RED BLOOD COUNT 3.55 x10e6/uL (4.3-5.7); RED CELL DISTRIBUTION WIDTH 16.6 % (11.7-14.4)
[2021-02-03 17:08] LABS: INR 1.01; PARTIAL THROMBOPLASTIN TIME 21.7 seconds (23.8-35.5); PROTHROMBIN TIME 13.9 seconds (11.9-14.5)
[2021-02-03 17:23] LABS: ALBUMIN 1.8 g/dL (3.5-5.0); ALBUMIN/GLOBULIN RATIO 0.4 (0.8-2.0); ANION GAP 16.4 mmol/L (8-16); CALCIUM 7.8 mg/dL (8.4-10.2); CREATININE, SERUM 2.78 mg/dL (0.72-1.25); MAGNESIUM 1.6 MG/DL (1.3-2.1); POTASSIUM 4.4 mmol/L (3.5-5.1)
[2021-02-03 17:29] LABS: CREATINE KINASE MB 0.8 ng/mL (0-5.0)
[2021-02-03 17:29] LABS: CLARITY,URINE HAZY (CLEAR); COLOR,URINE YELLOW (YELLOW); KETONES,URINE NEGATIVE (NEGATIVE); LEUKOCYTE ESTERASE ,URINE LARGE (NEGATIVE); NITRITE,URINE NEGATIVE (NEGATIVE); PROTEIN,URINE DIPSTICK >=300 (NEGATIVE); URINE UROBILINOGEN 0.2 mg/dL (0.2 - 1)
[2021-02-03 17:33] LABS: AMORPHOUS SEDIMENT,URINE FEW (FEW); BACTERIA,URINE MODERATE /HPF; EPITHELIAL CELLS,URINE FEW /LPF; MUCUS,URINE FEW (RARE); WBC,URINE (MAN) >50 /HPF (0-5)
[2021-02-03] MEDS ORDERED: VANCOMYCIN 1GM/NS 250 ML 250 ML IV ONE (17:45)
[2021-02-03] MEDS ORDERED: FLUCONAZOLE 400MG/200ML BAG 200 ML IV ONE ×2 (17:45→23:15)
[2021-02-03] MEDS ORDERED: ONDANSETRON HCL INJ 2MG/ML 2ML 2 MG/ML VIAL IV PRN (18:00)
[2021-02-03] MEDS ORDERED: SODIUM CHLORIDE 0.9% 1000ML 1,000 ML IV SCH (18:00)
[2021-02-03] MEDS: MEROPENEM 500 MG in SODIUM CHLORIDE 0.9% 50ML 50 ML IV SCH (18:45)
[2021-02-03] MEDS ORDERED: Vancomycin IV 1 GM VIAL ONE (20:17)
[2021-02-03] MEDS ORDERED: SODIUM CHLORIDE 0.9% 250ML 250 ML ONE (20:17)
[2021-02-03 20:55] VITALS: BP 121/98
[2021-02-03 21:00] VITALS: BP 121/98
[2021-02-04] VITALS (7 sets, daily range): BP systolic 113–139; BP diastolic 57–78
[2021-02-04 05:22] LABS: BASOPHILS # (AUTO) 0.1 (0.0-0.1); BASOPHILS % 0.7 % (0.0-1.0); EOSINOPHILS # (AUTO) 0.5 (0.0-0.4); EOSINOPHILS % 3.4 % (0.0-6.0); HEMATOCRIT 30.8 % (38.2-49.6); HEMOGLOBIN 8.9 g/dL (14.0-18.0); LYMPHOCYTES % 14.4 % (18.0-39.1); MEAN CORPUSCULAR HEMOGLOBIN 28.7 pg (28-32); MEAN CORPUSCULAR HGB CONC 28.9 g/dL (31-35); MEAN CORPUSCULAR VOLUME 99.4 fL (81-99); MONOCYTES % 7.5 % (4.4-11.3); NEUTROPHILS % 73.3 % (38.7-80.0); PLATELET COUNT 224 x10e3/uL (140-360); RED CELL DISTRIBUTION WIDTH 16.7 % (11.7-14.4)
[2021-02-04 05:46] LABS: ALBUMIN 1.6 g/dL (3.5-5.0); ALBUMIN/GLOBULIN RATIO 0.4 (0.8-2.0); ANION GAP 14.1 mmol/L (8-16); CALCIUM 7.5 mg/dL (8.4-10.2); CREATININE, SERUM 2.75 mg/dL (0.72-1.25); POTASSIUM 4.1 mmol/L (3.5-5.1)
[2021-02-04 06:22] LABS: CREATINE KINASE MB 0.7 ng/mL (0-5.0)
[2021-02-04] MEDS: MEROPENEM 500 MG in SODIUM CHLORIDE 0.9% 50ML 50 ML IV SCH (08:28)
[2021-02-04] MEDS ORDERED: DEXTROSE 50% SYRINGE 50 ML IV PRN (08:30)
[2021-02-04] MEDS: FLUCONAZOLE 200 MG/100 ML 100 ML IV SCH (10:11)
[2021-02-04] MEDS: FAMOTIDINE 20 MG/2 ML VIAL IV SCH ×2 (10:11→17:24)
[2021-02-04] MEDS: SERTRALINE HCL 100 MG TAB PO SCH (10:11)
[2021-02-04] MEDS: AMIODARONE HCL 200 MG TAB PO SCH (10:11)
[2021-02-04] MEDS: INSULIN LISPRO 100 UNIT/1 ML 3ML VIAL SQ SCH ×3 (11:30→20:21)
[2021-02-04 12:16] LABS: CREATINE KINASE MB 0.9 ng/mL (0-5.0)
[2021-02-04] MEDS: CEFTRIAXONE 1 GM in SODIUM CHLORIDE 0.9% 50ML 50 ML IV SCH (18:35)
[2021-02-05] VITALS (7 sets, daily range): BP systolic 110–148; BP diastolic 72–81
[2021-02-05 05:22] LABS: BASOPHILS # (AUTO) 0.1 (0.0-0.1); EOSINOPHILS # (AUTO) 0.5 (0.0-0.4); EOSINOPHILS % 4.4 % (0.0-6.0); HEMATOCRIT 30.8 % (38.2-49.6); HEMOGLOBIN 8.9 g/dL (14.0-18.0); LYMPHOCYTES # (AUTO) 1.9 (1.0-3.2); LYMPHOCYTES % 15.9 % (18.0-39.1); MEAN CORPUSCULAR HEMOGLOBIN 28.7 pg (28-32); MEAN CORPUSCULAR HGB CONC 28.9 g/dL (31-35); MEAN CORPUSCULAR VOLUME 99.4 fL (81-99); NEUTROPHILS # (AUTO) 8.3 (2.1-6.9); NEUTROPHILS % 69.5 % (38.7-80.0); PLATELET COUNT 232 x10e3/uL (140-360); RED CELL DISTRIBUTION WIDTH 16.6 % (11.7-14.4)
[2021-02-05 05:59] LABS: ANION GAP 13.8 mmol/L (8-16); CALCIUM 7.6 mg/dL (8.4-10.2); CREATININE, SERUM 2.83 mg/dL (0.72-1.25); POTASSIUM 3.8 mmol/L (3.5-5.1)
[2021-02-05] MEDS: INSULIN LISPRO 100 UNIT/1 ML 3ML VIAL SQ SCH ×4 (07:30→21:00)
[2021-02-05] MEDS: FLUCONAZOLE 200 MG/100 ML 100 ML IV SCH (08:32)
[2021-02-05] MEDS: SERTRALINE HCL 100 MG TAB PO SCH (08:35)
[2021-02-05] MEDS: FAMOTIDINE 20 MG/2 ML VIAL IV SCH ×2 (08:35→17:45)
[2021-02-05] MEDS: BALSAM PERU/CASTOR OIL 60 GM OINT...G. TP SCH (08:35)
[2021-02-05] MEDS: AMIODARONE HCL 200 MG TAB PO SCH (08:35)
[2021-02-05] MEDS: CEFTRIAXONE 1 GM in SODIUM CHLORIDE 0.9% 50ML 50 ML IV SCH (17:45)
[2021-02-05] MEDS ORDERED: ACETAMINOPHEN 325 MG TAB PO PRN (21:30)
[2021-02-06] VITALS: BP 130/61
[2021-02-06 04:00] VITALS: BP 142/50
[2021-02-06] MEDS: INSULIN LISPRO 100 UNIT/1 ML 3ML VIAL SQ SCH ×2 (07:30→11:30)
[2021-02-06 08:26] VITALS: BP 153/68
[2021-02-06] MEDS: FLUCONAZOLE 200 MG/100 ML 100 ML IV SCH (08:30)
[2021-02-06 08:35] VITALS: BP 153/68
[2021-02-06] MEDS: SERTRALINE HCL 100 MG TAB PO SCH (09:00)
[2021-02-06] MEDS: AMIODARONE HCL 200 MG TAB PO SCH (09:00)
[2021-02-06] MEDS: FAMOTIDINE 20 MG/2 ML VIAL IV SCH (09:00)
[2021-02-06] MEDS: BALSAM PERU/CASTOR OIL 60 GM OINT...G. TP SCH (09:00)
[2021-02-06 13:48] VITALS: BP 152/84
[2021-02-06] MEDS ORDERED: FAMOTIDINE 20 MG TAB PO SCH (16:30)
== END 2021-02-06 14:15 | DRG 698 ==
LOC: ER 15:24 → ERHOLD 17:57 → MED/SURG 20:58
PROVIDERS: ADMIT Internal Medicine; ATTEND Internal Medicine
DX: T83.518A Infection and inflammatory reaction due to other urinary catheter, initial encounter (principal); A41.9 Sepsis, unspecified organism; E43 Unspecified severe protein-calorie malnutrition; N17.9 Acute kidney failure, unspecified; N13.6 Pyonephrosis; I12.0 Hypertensive chronic kidney disease with stage 5 chronic kidney disease or end stage renal disease; N18.5 Chronic kidney disease, stage 5; E11.22 Type 2 diabetes mellitus with diabetic chronic kidney disease; Z66 Do not resuscitate; Z68.22 Body mass index [BMI] 22.0-22.9, adult; F01.50 Vascular dementia, unspecified severity, without behavioral disturbance, psychotic disturbance, mood disturbance, and anxiety; I48.0 Paroxysmal atrial fibrillation; Z79.01 Long term (current) use of anticoagulants; N49.2 Inflammatory disorders of scrotum; B95.5 Unspecified streptococcus as the cause of diseases classified elsewhere; T83.098A Other mechanical complication of other urinary catheter, initial encounter; Z53.29 Procedure and treatment not carried out because of patient's decision for other reasons; I25.10 Atherosclerotic heart disease of native coronary artery without angina pectoris; E03.9 Hypothyroidism, unspecified; Z20.822 Contact with and (suspected) exposure to COVID-19
CPT/HCPCS: 36415; 71045; 80048; 80053; 81001; 82550; 82553; 82948; 83735; 84484; 85025; 85610; 85730; 87040; 87071; 87086; 87186; 87205; 93005; 99251; 99285; J0696; J1450; J2185; J2405; J3370; J7030; J7050; U0002

== ENCOUNTER 2021-02-15 16:27 | Emergency (ER) | payer MEDICARE ==
[~2021-02-15] VITALS: Ht 177.8 cm; Wt 77.1 kg
[2021-02-15 20:06] LABS: BASOPHILS # (AUTO) 0.1 (0.0-0.1); BASOPHILS % 0.5 % (0.0-1.0); EOSINOPHILS # (AUTO) 0.4 (0.0-0.4); EOSINOPHILS % 3.8 % (0.0-6.0); HEMATOCRIT 33.2 % (38.2-49.6); HEMOGLOBIN 9.5 g/dL (14.0-18.0); LYMPHOCYTES # (AUTO) 2.2 (1.0-3.2); LYMPHOCYTES % 20.5 % (18.0-39.1); MEAN CORPUSCULAR HEMOGLOBIN 28.2 pg (28-32); MEAN CORPUSCULAR HGB CONC 28.6 g/dL (31-35); MEAN CORPUSCULAR VOLUME 98.5 fL (81-99); MONOCYTES # (AUTO) 0.6 (0.2-0.8); NEUTROPHILS # (AUTO) 7.6 (2.1-6.9); NEUTROPHILS % 69.1 % (38.7-80.0); PLATELET COUNT 252 x10e3/uL (140-360); RED BLOOD COUNT 3.37 x10e6/uL (4.3-5.7); RED CELL DISTRIBUTION WIDTH 17.3 % (11.7-14.4)
[2021-02-15 20:17] LABS: ALBUMIN 1.6 g/dL (3.5-5.0); ALBUMIN/GLOBULIN RATIO 0.4 (0.8-2.0); ANION GAP 19.9 mmol/L (8-16); CALCIUM 7.6 mg/dL (8.4-10.2); CREATININE, SERUM 2.95 mg/dL (0.72-1.25); POTASSIUM 3.9 mmol/L (3.5-5.1)
== END 2021-02-15 21:53 ==
LOC: ER 17:14
DX: R11.0 Nausea (principal); I12.0 Hypertensive chronic kidney disease with stage 5 chronic kidney disease or end stage renal disease; E11.22 Type 2 diabetes mellitus with diabetic chronic kidney disease; N18.6 End stage renal disease; Z99.2 Dependence on renal dialysis; I25.10 Atherosclerotic heart disease of native coronary artery without angina pectoris; I48.91 Unspecified atrial fibrillation; D64.9 Anemia, unspecified; E78.5 Hyperlipidemia, unspecified; F41.9 Anxiety disorder, unspecified; R94.31 Abnormal electrocardiogram [ECG] [EKG]
CPT/HCPCS: 36415; 80053; 84484; 85025; 93005; 99284